=== PATIENT | male | born 1955 | race Two or more races ===

== ENCOUNTER 2018-04-29 14:31 | Outpatient (CLI) | payer OTHER | END 2018-04-29 14:43 | disposition home or self-care (01) | LOC: SONOGRAMA 14:31 | DX: D21.3 Benign neoplasm of connective and other soft tissue of thorax (principal) ==

== ENCOUNTER 2019-01-09 08:35 | Outpatient (CLI) | payer OTHER | END 2019-01-09 09:07 | disposition home or self-care (01) | LOC: SONOGRAMA 08:35 | DX: R10.84 Generalized abdominal pain (principal); E13.42 Other specified diabetes mellitus with diabetic polyneuropathy; R10.2 Pelvic and perineal pain; E78.2 Mixed hyperlipidemia; N42.89 Other specified disorders of prostate; I51.7 Cardiomegaly; R07.89 Other chest pain ==

== ENCOUNTER → 2019-01-17 | Outpatient (CLI) | payer OTHER | END | disposition home or self-care (01) | LOC: NUCLEAR 11:00 | DX: I70.293 Other atherosclerosis of native arteries of extremities, bilateral legs (principal); R60.0 Localized edema; M79.661 Pain in right lower leg ==

== ENCOUNTER 2019-03-12 08:50 | Outpatient (CLI) | payer OTHER | END 2019-03-12 09:31 | disposition home or self-care (01) | LOC: MRI 08:50 | DX: D41.02 Neoplasm of uncertain behavior of left kidney (principal) | CPT/HCPCS: 74181 ==